=== PATIENT | female | born 1995 | race American Indian/Alaskan Native ===

== ENCOUNTER 2016-09-27 20:35 | Outpatient (CLI) | payer MEDICAID ==
[2016-09-27 20:55] VITALS: BP 123/64
== END 2016-09-27 22:48 | disposition home or self-care (01) ==
LOC: TRG 20:35
PROVIDERS: ATTEND Obstetrics & Gynecology
DX: O77.9 Labor and delivery complicated by fetal stress, unspecified (principal); O47.9 False labor, unspecified; Z3A.00 Weeks of gestation of pregnancy not specified